=== PATIENT | female | born 1960 | race Caucasian/White ===

== ENCOUNTER 2016-05-14 20:20 | Emergency (ER) | payer OTHER ==
[2016-05-14] MEDS ORDERED: LIDOCAINE HCL 2% URO-JET 5 ML JEL.PF.APP MUCOUS MEM ONE (20:57)
--- NOTE | 2016-05-14 22:28 | ER NURSING DOCUMENTATION ---
Nurse's Notes [facility] Name:Juanita Anderson Age:55 yrs Sex:Female :1960 Arrival Date:05/14/2016 Time:20:20 BedTrauma A Private MD: Diagnosis:Fecal Impaction;Constipation Presentation: 05/14 20:31 Presenting complaint: Patient states: no bm for 2 days s/p surgery. Transition of care: lb Home. Notified ED Physician of Dwayne Mancera notified. 20:31 Acuity: JON 3 lb 20:31 Method Of Arrival: Walk In lb Triage Assessment: 20:34 General: Appears distressed, uncomfortable, Behavior is anxious. Pain: Complains of lb pain in gluteal cleft Pain does not radiate. Pain currently is 9 out of 10 on a pain scale. Historical: - Allergies: PENICILLINS; SULFA (SULFONAMIDES); Keflex; Biaxin; Vicodin; OxyContin; - Home Meds: 1. Valium Oral 2. Dilaudid Rectal 3. sertraline oral - PMHx: DEPRESSION; - PSHx: Knee surgery; peniculectomy; - Tetanus: < 10 years. - Ebola Screening: : Patient negative for fever greater than or equal to 101.5 degrees Fahrenheit, and additional compatible Ebola Virus Disease symptoms. Patient denies exposure to infectious person. Patient denies travel to an Ebola-affected area in the 21 days before illness onset. No symptoms or risks identified at this time. . - Immunization history: Flu Vaccine None. - Social history: Smoking status: Patient states was never smoker of tobacco. Patient/guardian denies using alcohol. - Code Status:: Full code. Screenin:15 Infectious Disease Risk None. Abuse screen: Denies threats or abuse. Denies injuries lb from another. Nutritional screening: No deficits noted. Vital Signs: 20:43 BP 130 / 77; Pulse 78; Resp 16; Temp 98; Pulse Ox 92% on R/A; Weight 63.5 kg; Height 5 lb ft. 7 in. (170.18 cm); Pain 9/10; 22:27 BP 130 / 70; Pulse 80; Resp 14; Pain 0/10; lb 20:43 Body Mass Index 21.93 (63.50 kg, 170.18 cm) lb ED Course: 20:21 Patient arrived in ED. ma1 20:24 Tanner Rice MD is Attending Physician. joanna 20:30 Valuables Remains with patient Patient has correct armband on for positive lb identification. Placed in gown. Bed in low position. Call light in reach. Side rails up X 1. 20:31 Radha Bailon is Primary Nurse. lb 20:32 Triage completed. lb 21:15 Straight cath inserted #8 kenyan returned clear yellow urine. Patient tolerated well. lb 22:09 Soap suds enema given. Patient tolerated well. lb Administered Medications: 21:15 Drug: Urojet - Lidocaine Viscous Gel 2 % 1 application; Route: Mucous Membrane; lb Intake: 22:26 PO: 200ml (Water); Total: 200ml. lb Output: 21:14 Urine: 500ml (Straight Cath); Total: 500ml. lb 22:26 Stool: 2 (Loose Stool) ; Total: 500ml. lb Outcome: 22:19 Discharge ordered by . joanna 22:27 Discharged to home ambulatory. lb 22:27 Condition: improved 22:27 Discharge Assessment: Patient awake, alert and oriented x 3. No cognitive and/or functional deficits noted. Patient verbalized understanding of disposition instructions. 22:27 Instructed on discharge instructions, follow up and referral plans. 22:27 Patient left the ED. lb Signatures: Tanner Rice MD MD jm Bollock, Lynda AbbotsfordElena vidalissa [facility]
--- NOTE | 2016-05-14 22:28 | ER PHYSICIAN DOCUMENTATION ---
Physician Documentation [facility] Name:Juanita Anderson Age:55 yrs Sex:Female :1960 Arrival Date:05/14/2016 Time:20:20 BedTrauma A Private MD: Tanner Gaitan Disposition: 05/14/16 22:19 Discharged to Home/Self Care. Impression: Fecal Impaction, Constipation. - Condition is Good. - Discharge Instructions: CONSTIPATION (Adult), FECAL IMPACTION, Treated. - Medical Reconciliation form form. - Follow up: Private Physician; When: As needed; Reason: Continuance of care. - Problem is new. - Symptoms have improved. - Notes: Try 1/2 bottle of mag citrate a day for the next 3 days if you continue to take narcotic pain meds. HPI: 05/14 21:00 This 55 yrs old Female presents to ER via Walk In with complaints of jm Constipation, Urinary Problem. 21:00 The patient presents with constipation, has tried to treat at home, self disimpaction. jm Onset: The symptoms/episode began/occurred today. The symptoms are described as crampy. Pt is status post tummy -tuck procedure and is on oral Dilaudid. Pt has not urinated all day as she feels a large stoolball is pressing against her rectum and urethra causing her to be unable to urinate. . Historical: - Allergies: PENICILLINS; SULFA (SULFONAMIDES); Keflex; Biaxin; Vicodin; OxyContin; - Home Meds: 1. Valium Oral 2. Dilaudid Rectal 3. sertraline oral - PMHx: DEPRESSION; - PSHx: Knee surgery; peniculectomy; - Tetanus: < 10 years. - Ebola Screening: : Patient negative for fever greater than or equal to 101.5 degrees Fahrenheit, and additional compatible Ebola Virus Disease symptoms. Patient denies exposure to infectious person. Patient denies travel to an Ebola-affected area in the 21 days before illness onset. No symptoms or risks identified at this time. . - Immunization history: Flu Vaccine None. - Social history: Smoking status: Patient states was never smoker of tobacco. Patient/guardian denies using alcohol. - Code Status:: Full code. ROS: 21:00 Constitutional: Negative for fever. jm 21:00 Abdomen/GI: Positive for abdominal pain, constipation, abdominal cramps. 21:00 : Positive for difficulty urinating. Exam: 21:00 Constitutional: The patient appears alert, awake, anxious. 21:00 Cardiovascular: Rate: normal, Rhythm: regular. 21:00 Respiratory: Respirations: normal, Breath sounds: are normal. 21:00 Abdomen/GI: Palpation: moderate abdominal tenderness, in the suprapubic area- scar noted is CDI, Rectal exam: fecal impaction, that is moderate, the exam is chaperoned by an copier and printer field technician. 21:00 : CVA tenderness, is absent, Bladder: distension, tenderness, that is moderate. Vital Signs: 20:43 BP 130 / 77; Pulse 78; Resp 16; Temp 98; Pulse Ox 92% on R/A; Weight 63.5 kg; Height 5 lb ft. 7 in. (170.18 cm); Pain 9/10; 22:27 BP 130 / 70; Pulse 80; Resp 14; Pain 0/10; lb 20:43 Body Mass Index 21.93 (63.50 kg, 170.18 cm) lb MDM: 20:24 Patient medically screened. 21:00 Differential diagnosis: urinary retention and fecal impaction. Data reviewed: vital jm signs, nurses notes, and as a result, I will discharge patient. Counseling: I had a detailed discussion with the patient and/or guardian regarding: the historical points, exam findings, and any diagnostic results supporting the discharge/admit diagnosis, the need for outpatient follow up, with the patient's primary care provider. Response to treatment: the patient's symptoms have resolved after treatment. ED course: Urine was drained w majano and was clear. I squirted viscous lidocaine in her rectum and waited 10 minutes for it to take affect, but before I was able to attempt to disimpact, pt had a very large BM followed by more. Enema got even more out. Pt felt much better. DC home. . Dispensed Medications: 21:15 Drug: Urojet - Lidocaine Viscous Gel 2 % 1 application; Route: Mucous Membrane; lb Signatures: Tanner Rice MD MD jm Bollock, Lynda lb
== END 2016-05-14 22:28 | disposition home or self-care (01) ==
LOC: ER 20:20
DX: K56.41 Fecal impaction (principal); K59.00 Constipation, unspecified; R33.8 Other retention of urine; Z98.890 Other specified postprocedural states
CPT/HCPCS: 51701; 99284